=== PATIENT | male | born 2000 | race Caucasian/White ===

== ENCOUNTER 2023-02-01 19:09 | Emergency (ER) | payer SELFPAY ==
[2023-02-01 19:20] VITALS: BP 125/83; PULSE 91; RESP 19; TEMP 36.7; O2SAT 98; BMI 29.7
[2023-02-01 19:30] VITALS: BP 125/83; PULSE 91; RESP 19; TEMP 36.7; O2SAT 98
[2023-02-01 19:37] LABS: UTC Strep Screen (Rapid) Positive (Negative)
--- NOTE | 2023-02-01 19:37 | EXP.UTC ---
Discharge Plan Disposition Patient Disposition: Home, Self-Care Condition: Good Prescriptions Prescriptions: New amoxicillin 500 mg capsule 500 mg PO BID 10 Days Qty: 20 0RF No Action multivitamin Tablet 1 tab PO DAILY All Day Allergy (cetirizine) 10 mg capsule 10 mg PO DAILY PRN cefdinir 300 mg capsule 300 mg PO BID 10 Days Qty: 20 0RF Referrals Follow up/Referrals: Provider,Referral, MD [Primary Care Provider] - See instructions Activity Restrictions/Add. Instructions Additional Instructions/Restrictions: *Monitor Temp, Over the counter Motrin or Tylenol as directed/as needed Tylenol every 4 hours and Motrin every 6 hours (as long as your family doctor has told you that you can take it) for fever or pain. and straight to ER if unable to lower temp less than 101.0 after medication given *Warm salt water gargles may help to soothe the throat *Throat Lozenges? *Warm fluids like tea with honey may help to soothe the throat? *Sleep elevated *Humidifier/Vaporizer * *If you did not take Penicillin shot or was unable to, start taking antibiotic immediately and make sure that you take it for the FULL length of time although you should start to feel better in 24-48 hours *change toothbrush and toothpaste 24-48 hours after starting to take antibiotics so you do not reinfect yourself Monitor Temp. Tylenol and/or Ibuprofen as needed. ER if fever is no less than 101 despite alternating Tylenol and Ibuprofen * Encourage fluids, water, Gatorade, powerade, pedialyte if infant/toddler/or child *Cold fluids, popsicles and ice cream may feel good on his throat Follow up IMMEDIATELY for new or worsening symptoms or no Noticeable improvement over the next 48-72 hours. 911 for difficulty breathing or swallowing Clinical Impressions Clinical Impression: Strep throat Instructions Patient Instructions: DI for Strep Throat, Strep Throat Discharge ED Provider: Debra Grant [facility] General Stated complaint: sore throat Mode of Arrival: Ambulatory Source of Information: Patient Limitations: No Limitations Time Seen by Provider: 02/01/23 19:37 Description of Symptoms (Recalled from Triage Doc. by RN): PATIENT C/O SORE THROAT, RUNNY NOSE, AND CONGESTION X 2 DAYS HEENT Symptoms (Recalled from RN notes): Yes Resp Symptoms (Recalled from RN notes): No Skin Symptoms (Recalled from RN notes): No MS Symptoms (Recalled from RN notes): No Functional Status (Recalled from RN notes): WNL History of Present Illness Provider Complaint: Patient states that he has been having sore throat, runny nose and congestion for several days States that he has been out deer hunting and his throat would burn when he breaths States that feels like it does when he has a throat infection Related Data Home Medications Medication Instructions Recorded Confirmed cetirizine 10 mg capsule (All Day 10 mg PO DAILY PRN 08/20/21 08/20/21 Allergy (cetirizine)) multivitamin 1 tab PO DAILY 08/20/21 08/20/21 Previous Rx's Medication Instructions Recorded cefdinir 300 mg capsule 300 mg PO BID 10 days #20 caps 08/20/21 amoxicillin 500 mg capsule 500 mg PO BID 10 days #20 caps 02/01/23 Allergies Allergy/AdvReac Type Severity Reaction Status Date / Time No Known Allergies Allergy Verified 08/20/21 11:07 Worker's Comp Is this a Worker's Comp case?: No [facility] Disclaimer: The information contained in this section may have been updated after the patient was seen, as this information can be updated by other users. 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
== END 2023-02-01 19:48 | disposition home or self-care (01) ==
PROVIDERS: Emergency Provider Nurse Practitioner
DX: J02.0 Streptococcal pharyngitis (principal); R07.0 Pain in throat; R09.81 Nasal congestion; F17.210 Nicotine dependence, cigarettes, uncomplicated
CPT/HCPCS: 87880; 99204; 99212; G0463

== ENCOUNTER 2024-03-18 11:57 | Outpatient (CLI) | payer BC, SELFPAY | END 2024-03-18 23:59 | disposition home or self-care (01) | LOC: LAB.DROPOF 11:57 | PROVIDERS: PCP Nurse Practitioner Family; Visit Provider Nurse Practitioner Family | DX: J02.9 Acute pharyngitis, unspecified (principal); H92.10 Otorrhea, unspecified ear | CPT/HCPCS: 87070 ==

== ENCOUNTER 2024-04-01 11:28 | Outpatient (CLI) | payer BC, SELFPAY ==
--- NOTE | 2024-04-01 11:33 | XR_ITS ---
FINAL REPORT TECHNIQUE: Chest PA & Lateral CLINICAL HISTORY: r/o pna, shortness of breath COMPARISON: None FINDINGS: 2 views of the chest were performed. The heart size is normal. The mediastinum is within normal limits. There is no acute cardiopulmonary process. There are no pleural effusions. There is no pneumothorax. The bony thorax appears intact. IMPRESSION: No acute cardiopulmonary process. Reviewed, Interpreted and Dictated by Damien Anderson MD Transcribed by Jami Ahmadi Authenticated and [facility]
== END 2024-04-01 23:59 | disposition home or self-care (01) ==
LOC: RAD 11:29
PROVIDERS: PCP Nurse Practitioner Family; Visit Provider Nurse Practitioner Family
DX: R06.00 Dyspnea, unspecified (principal)
CPT/HCPCS: 71046

== ENCOUNTER 2024-07-04 02:03 | Emergency (ER) | payer BC, SELFPAY ==
[2024-07-04 02:04] VITALS: BP 140/94; PULSE 68; RESP 18; TEMP 36.8; O2SAT 100; BMI 28.8
--- NOTE | 2024-07-04 02:07 | XR_ITS ---
PROCEDURE INFORMATION: Exam: XR Chest Exam date and time: 07/04/2024 2:17 AM Age: 24 years old Clinical indication: Pain; Radiating; Additional info: Chest pain TECHNIQUE: Imaging protocol: Radiologic exam of the chest. Views: 1 view. COMPARISON: CR XR CHEST 2V 04/01/2024 11:35 AM FINDINGS: Lungs: Unremarkable. No consolidation. Pleural spaces: Unremarkable. No pleural effusion. No pneumothorax. Heart/Mediastinum: Unremarkable. No cardiomegaly. Vasculature: Unremarkable. Bones/joints: Unremarkable. IMPRESSION: No acute findings.
--- NOTE | 2024-07-04 02:07 | ECG_ITS ---
APPROVED REPORT Exam: Resting ECG HR:75 bpm ECG Measurements Heart Rate 75 AXES CA 184 P 58 QRSd 99 QRS 60 QT 360 T 69 QTc 389 Conclusion SINUS RHYTHM NORMAL ECG INTERPRETATION BASED ON A DEFAULT AGE OF 40 YEARS UNCONFIRMED REPORT Electronically signed by : AUNDREA BETANCUR, 07/05/2024 03:46:35
--- NOTE | 2024-07-04 02:09 | HMH.EDGENADL ---
Discharge Plan Disposition Patient Disposition: Home, Self-Care Prescriptions Prescriptions: No Action No Known Home Medications promethazine-DM 6.25-15 mg/5 mL syrup 5 ml PO Q4-6H PRN (Reason: cough) Qty: 118 0RF pseudoephedrine HCl 60 mg tablet 60 mg PO Q4-6H PRN (Reason: nasal congestion) Qty: 20 0RF Rx Instructions: DNExceed 4 doses/24h Activity Restrictions/Add. Instructions Additional Instructions/Restrictions: Please follow-up with your primary care provider. Please return to the emergency department if you develop any new or worsening symptoms or become concerned for your health. Clinical Impressions Clinical Impression: Chest pain, Arm pain Print Language Print Language: Greek Discharge ED Provider: Percy Chowdary General Adult HPI General Chief complaint: Chest Pain Stated complaint: CHEST PAIN Time Seen by Provider: 07/04/24 02:07 History of Present Illness HPI narrative: 24-year-old male without significant past medical history presents for chest pain. Has been ongoing for several days. Associated with left arm pain. Comes and goes but has been ongoing for several hours at this point. Denies shortness of breath currently. Reported some shortness of breath while working earlier today. Reports that he has had some palpitations in the past. Related Data Home Medications ?Medication ?Instructions ?Recorded ?Confirmed No Known Home Medications 03/18/24 03/18/24 Previous Rx's ?Medication ?Instructions ?Recorded promethazine-DM 6.25 mg-15 mg/5 mL 5 ml PO Q4-6H PRN cough #118 mL 04/01/24 oral syrup pseudoephedrine HCl 60 mg tablet 60 mg PO Q4-6H PRN nasal 04/01/24 congestion #20 tabs Allergies Allergy/AdvReac Type Severity Reaction Status Date / Time No Known Allergies Allergy Verified 04/01/24 10:18 [facility] Disclaimer: The information contained in this section may have been updated after the patient was seen, as this information can be updated by other users. 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) Travel in the last 8 weeks: None Have you lived/traveled outside [place] in past 30 days?: No Contact w/someone who lives/traveled outside [place] past 30 days?: No Exposure to someone with infectious disease in past 14 days?: No Do you have a fever (greater than 100.4 F or 38 C)?: No Have you tested positive for COVID-19: No Exposed to someone with COVID-19 in past 14 days?: No Do you have a sore throat?: No Do you have a cough?: No Do you have any weakness?: No Do you have any diarrhea?: No Are you experiencing any unusual bleeding?: No Do you have any muscle aches/pain?: No Do you have any abdominal pain?: No Are you experiencing loss of taste or smell?: No ROS Obtained: Yes All systems reviewed & no additional complaints except as documented Physical Exam General General appearance: alert and in no apparent distress Head Head exam: atraumatic and normocephalic Eye Eye exam: Present normal appearance, PERRL and EOMI ENT ENT exam: Present normal oropharynx and normal external ear exam Neck Neck exam: Present normal inspection and full ROM Chest Chest inspection: Present normal inspection and symmetric chest wall rise; Absent tenderness Respiratory Respiratory exam: Present normal lung sounds bilaterally; Absent respiratory distress Cardiovascular Cardiovascular exam: Present regular rate and normal rhythm Abdominal Exam Abdominal exam: Present soft; Absent distention, tenderness or guarding Extremities Exam Extremities exam: Present normal inspection; Absent edema or joint swelling Back Exam Back exam: Present normal inspection; Absent tenderness Neurological Exam Neurological exam: Present alert and oriented X3; Absent motor sensory deficit Psychiatric Psychiatric exam: Present normal affect and normal mood Skin Skin exam: Present warm, dry and normal color Lymphatic Lymphatic Findings: no adenopathy Medical Decision Making Medical Records Medical records reviewed: Yes I reviewed the patient's medical records. Screening: Per USPSTF and CDC recommendations, given the prevalence of disease in our region, it is our hospital?s policy to screen for HIV and viral Hepatitis for all patients aged 18 and over and those with ongoing risk factors. Juan Inquiry Pt receiving controlled substance: No Juan was queried for this patient: No Vital Signs: 07/04/24 02:04 07/04/24 02:40 07/04/24 02:47 Temperature 98.3 F 97.5 F L Temperature Source Oral Pulse Rate 68 61 Pulse Rate [Left Radial] 68 Respiratory Rate 18 16 Blood Pressure 130/74 Blood Pressure [Right Arm] 140/94 H Blood Pressure Mean [Right Arm] 109 Blood Pressure Source [Right Arm] Automatic Cuff Blood Pressure Position [Right Arm] Sitting 02 Sat by Pulse Oximetry 100 Oxygen Delivery Method Room Air Room Air Lab Data Lab results reviewed: Yes I reviewed the patient's lab results. Lab Results 07/04/24 02:07: WBC 9.2, RBC 4.91, Hgb 15.0, Hct 43.5, MCV 88.6, MCH 30.5, MCHC 34.5, RDW 11.8, Plt Count 317, MPV 10.2, Neut % (Auto) 44.6, Lymph % (Auto) 42.6, [place] % (Auto) 9.9 H, Eos % (Auto) 2.1, Baso % (Auto) 0.7, Neut # (Auto) 4.1, Lymph # (Auto) 3.9, [place] # (Auto) 0.9, Eos # (Auto) 0.2, Baso # (Auto) 0.1, Sodium 140, Potassium 4.3, Chloride 106, Carbon Dioxide 26, Anion Gap 12.3, BUN 16, Creatinine 1.00, Estimated Creat Clear 138, Estimated GFR 91, Est GFR ( Amer) 110, Glucose 98, Calcium 9.3, Total Bilirubin 1.0, AST 36, ALT 37, Alkaline Phosphatase 48, Troponin I < 0.01, Total Protein 7.6, Albumin 4.8, Globulin 2.8, Albumin/Globulin Ratio 1.7, HCV Ab IVET w/Rflx PCR Qn Negative, HIV Ag/Ab Combo Qual Negative 07/04/24 02:07 07/04/24 02:07 Orders (Tests/Meds): ED MEDICATIONS Discontinued Medications Generic Name Dose Route Start Last Admin Trade Name Freq PRN Reason Stop Dose Admin Acetaminophen 1,000 mg 07/04/24 02:07 07/04/24 02:18 Acetaminophen 500mg Tab PO 07/04/24 02:08 1,000 mg ONCE ONE Administration Belladonna Alkaloids 60 ml 07/04/24 02:07 07/04/24 02:17 Belladonna Alkaloids 60 Ml Ml PO 07/04/24 02:08 60 ml ONCE ONE Administration ORDERS Category Date Time Status CXR --portable [XR chest portable] Stat Exams 07/04/24 02:07 Completed CBC w/Auto Diff [Complete Blood Count Auto Diff] Stat Lab 07/04/24 02:07 Completed CMP [Comprehensive Metabolic Panel] Stat Lab 07/04/24 02:07 Completed HIV Combo Stat Lab 07/04/24 02:07 Completed Hepatitis C Ab Qual. W/ RFX Stat Lab 07/04/24 02:07 Completed Troponin I Q3H Lab 07/04/24 02:07 Completed HEART Score History (anamnesis): Slightly suspicious ECG: Normal Age: <45 years Risk factors: No known risk factors Troponin: </= normal limit HEART Score: 0 Medical Decision Narrative: 44-year-old male without significant past medical history presents for several days of chest pain and left shoulder pain. History was obtained via interactive discussion with patient, family, chart review. On arrival, patient is [afebrile, hemodynamically stable, satting appropriately, alert, oriented x4, GCS 15], moving all extremities spontaneously. Full physical exam performed and significant for no significant physical exam abnormalities. Differential includes but is not limited to musculoskeletal chest pain, GERD, pleurisy, ACS, PE, carditis, myocarditis. Patient was given Tylenol, GI cocktail for symptomatic management and correction of underlying abnormalities. Workup initiated including CBC CMP troponin chest x-ray EKG. Medication for D-dimer as patient is PERC negative. Patient was not given aspirin as no significant concern for ACS at this time given history and exam. On re-evaluation, patient [remains afebrile, HD stable.] Laboratory workup independently interpreted by me and significant for negative troponin, no significant renal dysfunction, no significant Cintia derangement. Imaging independently interpreted by me and significant for clear lungs bilaterally with no focal opacity. See radiology read for full review of final results. EKG independently interpreted by me and significant for sinus rhythm, rate of 75, no concerning ST changes or T wave changes. No evidence of arrhythmia.. Second troponin was considered, but deemed unnecessary due to history and exam. Given patient history, exam and workup, patient's presentation most likely represents noncardiac chest pain. Underlying etiology is unclear, but no evidence of emergent pathology at this time patient discharged in stable condition return precautions.. Procedures Risk/Benefits of Procedure(s) Were Explained: Yes Critical Care Critical Care Time Critical Care Time: No
[2024-07-04 02:15] LABS: Basophils # 0.1 K/mm3 (0-0.2); Basophils % 0.7 % (0.1-2.0); Eosinophils # 0.2 Kmm3 (0.0-0.4); Eosinophils % 2.1 % (0.1-12.0); Hematocrit 43.5 % (42.0-52.0); Lymphocytes # 3.9 K/mm3 (0.7-4.5); Lymphocytes % 42.6 % (10-50); Mean Corpuscular HGB Conc 34.5 g/dL (31.8-35.4); Mean Corpuscular Hemoglobin 30.5 pg (27.0-31.2); Mean Corpuscular Volume 88.6 fl (80-94); Mean Platelet Volume 10.2 fl (7.4-10.4); Monocytes # 0.9 K/mm3 (0.1-1.0); Monocytes % 9.9 % (1.7-9.3); Neutrophils # 4.1 K/mm3 (1.8-7.8); Neutrophils % 44.6 % (37.0-80.0); Nucleated Red Blood Cells # 0 10^3/uL; Nucleated Red Blood Cells % 0 %; Platelet Count 317 K/mm3 (142-424); Red Blood Count 4.91 M/mm3 (4.60-6.20); Red Cell Distribution Width 11.8 % (11.5-17.5); Red Cell Distribution Width-SD 37.6 fL; White Blood Count 9.2 K/mm3 (4.8-10.8)
[2024-07-04] MEDS: BELLADONNA ALKALOIDS 60 ML ML PO (02:17)
[2024-07-04 02:18] LABS: Chloride 106 mmol/L (98-107)
[2024-07-04] MEDS: ACETAMINOPHEN 500MG TAB 1000 MG PO (02:18)
[2024-07-04 02:19] LABS: Albumin Level 4.8 g/dl (3.5-5.0); Potassium 4.3 mmoL/L (3.5-5.1); Sodium 140 mmol/L (136-145)
[2024-07-04 02:21] LABS: Blood Urea Nitrogen 16 mg/dl (9-20); Creatinine Clearance Estimated 138 mL/min (50-200); Estimated Glomerular Filt Rate 91 ml/min (>60); GFR (African American) 110 ML/MIN (>60)
[2024-07-04 02:22] LABS: Alanine Aminotransferase 37 U/L (12-78); Albumin/Globulin Ratio 1.7 (1.1-1.8); Alkaline Phosphatase 48 U/L (38-126); Anion Gap 12.3 mEq/L (5-15); Aspartate Amino Transferase 36 U/L (17-59); Calcium 9.3 mg/dl (8.4-10.2); Carbon Dioxide 26 mmol/L (22.0-30.0); Globulin 2.8 g/dL (1.3-3.2); Glucose 98 mg/dl (74-100); Total Protein,Serum 7.6 g/dl (6.3-8.2)
[2024-07-04 02:34] LABS: Troponin I < 0.01 ng/ml (0.00-0.034)
[2024-07-04 02:40] VITALS: PULSE 68
[2024-07-04 02:47] VITALS: BP 130/74; PULSE 61; RESP 16; TEMP 36.4; O2SAT 96
[2024-07-04 03:23] LABS: HIV Combo NEGATIVE (Negative)
[2024-07-04 03:31] LABS: Hepatitis C Ab Qual. W/ RFX NEGATIVE (Negative)
== END 2024-07-04 02:49 | disposition home or self-care (01) ==
PROVIDERS: Emergency Provider Emergency Medicine
DX: R07.89 Other chest pain (principal); R06.02 Shortness of breath; Z11.59 Encounter for screening for other viral diseases; Z11.4 Encounter for screening for human immunodeficiency virus [HIV]
CPT/HCPCS: 71045; 80053; 84484; 85025; 86803; 87389; 93005; 99284